=== PATIENT | female | born 1950 | race Caucasian/White ===

== ENCOUNTER 2017-02-24 08:13 | Emergency (ER) | payer OTHER ==
[2017-02-24] MEDS ORDERED: Ondansetron 4 MG/2 ML SDV IVPUSH ONE (08:29)
[2017-02-24] MEDS ORDERED: Sodium Chloride 0.9% 2.5 ML Syringe FLUSH PRN (08:29)
[2017-02-24] MEDS ORDERED: Ketorolac 30 MG/ML SDV IVPUSH ONE (08:29)
[2017-02-24] MEDS ORDERED: Sodium Chloride 0.9% 1,000 ML IV ONE (08:29)
[2017-02-24] MEDS ORDERED: Sodium Chloride 0.9% 10 ML Syringe FLUSH PRN (08:29)
--- NOTE | 2017-02-24 08:30 | EDM.PDOC ---
ED HPI GENERAL MEDICAL PROBLEM - General Chief Complaint: Abdominal Pain Stated Complaint: PAIN ON THE SIDE Time Seen by Provider: 02/24/17 08:24 - History of Present Illness INITIAL COMMENTS - FREE TEXT/NARRATIVE: HISTORY AND PHYSICAL: History of present illness: The patient is a 66-year-old female who follows in our clinic for her regular checkups and has no stated medical problems or surgical history and presents with complaints of a week and a half of left sided abdominal pain. Patient was traveling in [place] when it started it was gradual in onset and she has a long- standing history of issues with her bowels, constipation issues. She says it was crampy and dull and intermittently sharp and does not radiate to the flank or to the lower abdomen. It is mostly localized in the left upper abdominal area. It is not associated with fever chills nausea or vomiting but she has had anorexia and has not had much of an appetite. She is able to eat and drink but just doesn't have much of an appetite. She now says that over the last few days all foods seem to make the pain worse. She has no history of food intolerance. She did have a screening colonoscopy years ago which was normal. She has had bowel movements over the last few days but they are very small and hard in character and there is no black or bloody stools. The patient currently describes the pain as a sharper pain but intermittently will be more dull and it is localized in that left upper abdominal area. She has no history of gallbladder trouble or pancreas trouble and does drink alcohol but has not had an excessive amount and has had no new medications. She hasn't had no hematuria dysuria frequency or urgency. Review of systems: As per history of present illness and below otherwise all systems reviewed and negative. Past medical history: As per history of present illness and as reviewed below otherwise noncontributory. Surgical history: As per history of present illness and as reviewed below otherwise noncontributory. Social history: No reported history of drug or alcohol abuse. Family history: As per history of present illness and as reviewed below otherwise noncontributory. Physical exam: General: Well-developed well-nourished female who is nontoxic and able to move easily in the ED without distress. Vital signs were noted by me HEENT: Atraumatic, normocephalic, pupils reactive, negative for conjunctival pallor or scleral icterus, mucous membranes tacky, throat clear, neck supple, nontender, trachea midline. Lungs: Clear to auscultation, breath sounds equal bilaterally, chest nontender. Heart: S1S2, regular, negative for clicks, rubs, or JVD. Abdomen: Soft, nondistended, minimally tender to deep palpation in the left upper abdominal area without rebound or guarding. Bowel sounds are hypoactive. Negative for masses or hepatosplenomegaly. Negative for costovertebral tenderness. Pelvis: Stable nontender. Genitourinary: Deferred. Rectal: Deferred. Extremities: Atraumatic, negative for cords or calf pain. Neurovascular unremarkable. Neuro: Awake, alert, oriented. Cranial nerves II through XII unremarkable. Cerebellum unremarkable. Motor and sensory unremarkable throughout. Exam nonfocal. Diagnostics: CBC CMP amylase lipase UA urine culture indicated CT scan of the abdomen and pelvis Therapeutics: IV fluids Toradol Zofran I discussed with the patient at length her testing results and care plan for home which would include Bentyl as needed as well as increasing fiber in her diet MiraLAX daily for a short period of time and a probiotic. I advised the patient to contact our clinic for followup in the next few days and reasons to return to the ER. Impression: Left abdominal pain, history of constipation stable Definitive disposition and diagnosis as appropriate pending reevaluation and review of above. abdomen Pain Score (Numeric/FACES): 8 - Related Data Allergies Allergy/AdvReac Type Severity Reaction Status Date / Time levofloxacin [From Levaquin] Allergy Other Verified 02/24/17 08:29 sulfamethoxazole Allergy Cannot Verified 02/24/17 08:29 [From Bactrim] Remember trimethoprim [From Bactrim] Allergy Cannot Verified 02/24/17 08:29 Remember venlafaxine HCl Allergy Other Verified 02/24/17 08:29 [From Effexor] Home Meds: Home Meds PARoxetine HCl [Paroxetine HCl] 10 mg PO DAILY 02/24/17 [History] Zolpidem [Ambien] 5 mg PO DAILY 02/24/17 [History] ED ROS GENERAL - Review of Systems Review Of Systems: ROS reveals no pertinent complaints other than HPI. ED EXAM, GENERAL - Physical Exam Exam: See Below (See dictation) Course - Vital Signs Last Recorded V/S: Last Vital Signs Temp 36.1 C 02/24/17 08:20 Pulse 89 02/24/17 10:21 Resp 18 02/24/17 10:21 BP 118/66 02/24/17 10:21 Pulse Ox 96 02/24/17 10:21 - Orders/Labs/Meds Orders: Active Orders 24 hr Category Date Time Status Sodium Chloride 0.9% [Saline Flush] Med 02/24/17 08:29 Active 10 ml FLUSH ASDIRECTED PRN Sodium Chloride 0.9% [Saline Flush] Med 02/24/17 08:29 Active 2.5 ml FLUSH ASDIRECTED PRN Saline Lock Insert [OM.PC] Stat Oth 02/24/17 08:29 Ordered Medication Orders Sodium Chloride (Saline Flush) 10 ml FLUSH ASDIRECTED PRN PRN Reason: Keep Vein Open Last Admin: 02/24/17 08:47 Dose: 10 ml Sodium Chloride (Saline Flush) 2.5 ml FLUSH ASDIRECTED PRN PRN Reason: Keep Vein Open Last Admin: 02/24/17 08:47 Dose: 2.5 ml Labs: Laboratory Tests 02/24/17 02/24/17 02/24/17 Range/Units 08:37 08:37 09:30 WBC 5.26 (4.0-11.0) K/uL RBC 4.28 L (4.30-5.90) M/uL Hgb 13.5 (12.0-16.0) g/dL Hct 40.3 (36.0-46.0) % MCV 94.2 (80.0-98.0) fL MCH 31.5 (27.0-32.0) pg MCHC 33.5 (31.0-37.0) g/dL RDW Std Deviation 46.0 (28.0-62.0) fl RDW Coeff of Charmaine 13 (11.0-15.0) % Plt Count 166 (150-400) K/uL MPV 10.20 (7.40-12.00) fL Neut % (Auto) 58.9 (48.0-80.0) % Lymph % (Auto) 31.6 (16.0-40.0) % [place] % (Auto) 7.8 (0.0-15.0) % Eos % (Auto) 1.3 (0.0-7.0) % Baso % (Auto) 0.4 (0.0-1.5) % Neut # (Auto) 3.1 (1.4-5.7) K/uL Lymph # (Auto) 1.7 (0.6-2.4) K/uL [place] # (Auto) 0.4 (0.0-0.8) K/uL Eos # (Auto) 0.1 (0.0-0.7) K/uL Baso # (Auto) 0.0 (0.0-0.1) K/uL Nucleated RBC % 0.0 /100WBC Nucleated RBCs # 0 K/uL Sodium 140 (136-146) mmol/L Potassium 3.8 (3.5-5.1) mmol/L Chloride 111 H (98-110) mmol/L Carbon Dioxide 19 L (21-31) mmol/L BUN 14 (6.0-23.0) mg/dL Creatinine 0.9 (0.6-1.5) mg/dL Est Cr Clr Drug Dosing 59.12 mL/min Estimated GFR (MDRD) > 60.0 ml/min Glucose 116 H (60-110) mg/dL Calcium 9.6 (8.8-10.8) mg/dL Total Bilirubin 0.6 (0.1-1.5) mg/dL AST 19 (5-40) IU/L ALT 10 (8-54) IU/L Alkaline Phosphatase 58 (40-150) Total Protein 7.1 (6.0-8.0) g/dL Albumin 4.1 (3.4-4.8) g/dL Globulin 3.0 (2.0-3.5) g/dL Albumin/Globulin Ratio 1.4 (1.3-2.8) Amylase 45 (10-90) U/L Lipase 14 (7-80) U/L Urine Color YELLOW Urine Appearance CLEAR Urine pH 5.0 (5.0-8.0) Ur Specific [place] <= 1.005 (1.001-1.035) Urine Protein NEGATIVE (NEGATIVE) mg/dL Urine Glucose (UA) NEGATIVE (NEGATIVE) mg/dL Urine Ketones NEGATIVE (NEGATIVE) mg/dL Urine Occult Blood NEGATIVE (NEGATIVE) Urine Nitrite NEGATIVE (NEGATIVE) Urine Bilirubin NEGATIVE (NEGATIVE) Urine Urobilinogen 0.2 (<2.0) EU/dL Ur Leukocyte Esterase NEGATIVE (NEGATIVE) Urine RBC 0-2 (0-2/HPF) Urine WBC 0-2 (0-5/HPF) Ur Epithelial Cells FEW (NONE-FEW) Urine Bacteria RARE (NEGATIVE) Meds: Medications Generic Name Dose Route Start Last Admin Trade Name Freq PRN Reason Stop Dose Admin Sodium Chloride 10 ml 02/24/17 08:29 02/24/17 08:47 Saline Flush FLUSH 10 ml ASDIRECTED PRN Administration Keep Vein Open Sodium Chloride 2.5 ml 02/24/17 08:29 02/24/17 08:47 Saline Flush FLUSH 2.5 ml ASDIRECTED PRN Administration Keep Vein Open Discontinued Medications Generic Name Dose Route Start Last Admin Trade Name Freq PRN Reason Stop Dose Admin Sodium Chloride 1,000 mls @ 999 mls/hr 02/24/17 08:29 02/24/17 08:45 Normal Saline IV 02/24/17 09:29 999 mls/hr .Bolus ONE Administration Iopamidol 100 ml 02/24/17 09:19 02/24/17 10:53 Isovue Multipack-370 (76%) IVPUSH 02/24/17 09:20 100 ml ONETIME STA Administration Ketorolac Tromethamine 30 mg 02/24/17 08:29 02/24/17 08:44 Toradol IVPUSH 02/24/17 08:30 30 mg ONETIME ONE Administration Ondansetron HCl 4 mg 02/24/17 08:29 02/24/17 08:44 Zofran IVPUSH 02/24/17 08:30 4 mg ONETIME ONE Administration Departure - Departure Time of Disposition: 11:34 Disposition: Home, Self-Care 01 Condition: good Clinical Impression: Abdominal pain Qualifiers: Abdominal location: left upper quadrant Qualified Code(s): R10.12 - Left upper quadrant pain Forms: ED Department Discharge Additional Instructions: The following information is given to patients seen in the emergency department who are being discharged to home. This information is to outline your options for follow-up care. We provide all patients seen in our emergency department with a follow-up referral. The need for follow-up, as well as the timing and circumstances, are variable depending upon the specifics of your emergency department visit. If you don't have a primary care physician on staff, we will provide you with a referral. We always advise you to contact your personal physician following an emergency department visit to inform them of the circumstance of the visit and for follow-up with them and/or the need for any referrals to a consulting specialist. The emergency department will also refer you to a specialist when appropriate. This referral assures that you have the opportunity for followup care with a specialist. All of these measure are taken in an effort to provide you with optimal care, which includes your followup. Under all circumstances we always encourage you to contact your private physician who remains a resource for coordinating your care. When calling for followup care, please make the office aware that this follow-up is from your recent emergency room visit. If for any reason you are refused follow-up, please contact the [facility] emergency department at and ask to speak to the emergency department charge nurse. [facility] Primary care- Internal [place] [address] Please increase fiber in her diet and push hydration as we discussed and use [id number] MiraLAX twice a day for the next 2-3 days and then once a day for the next 7 days. Please also purchase a probiotic as we discussed. Use Bentyl prescribed to you as needed and directed and please call the clinic and schedule followup appointment. Return to ER as needed and as discussed - My Orders Last 24 Hours: My Active Orders 02/24/17 08:29 Sodium Chloride 0.9% [Saline Flush] 10 ml FLUSH ASDIRECTED PRN Sodium Chloride 0.9% [Saline Flush] 2.5 ml FLUSH ASDIRECTED PRN Saline Lock Insert [OM.PC] Stat - Assessment/Plan Last 24 Hours: My Active Orders 02/24/17 08:29 Sodium Chloride 0.9% [Saline Flush] 10 ml FLUSH ASDIRECTED PRN Sodium Chloride 0.9% [Saline Flush] 2.5 ml FLUSH ASDIRECTED PRN Saline Lock Insert [OM.PC] Stat
[2017-02-24 09:14] LABS: CHLORIDE,CL 111 mmol/L (98-110); SODIUM,NA 140 mmol/L (136-146)
[2017-02-24] MEDS ORDERED: Iopamidol 755 MG/ML 500 ML Multipack Bottle IVPUSH STA (09:19)
--- NOTE | 2017-02-24 11:14 | CT ---
CT of the abdomen and pelvis with contrast. HISTORY: Left-sided pain TECHNIQUE: Axial CT images were obtained of the abdomen and pelvis following administration of 100 m L of Isovue-370 without complication. Coronal and sagittal reconstructions obtained. FINDINGS: The lung bases are clear, no pleural effusion. Tiny hypodensities are noted within the liver, too sm all to fully characterize. The spleen, adrenal glands, and pancreas appear normal. The gallbladder i s unremarkable. There is a tiny fat-containing umbilical hernia. The kidneys enhance and function symmetrically without evidence of obstructive uropathy. The large and small bowel are normal in caliber without evidence of obstruction. No pericolonic infl ammation or stranding. The appendix appears normal. The urinary bladder is normal. No bulky pelvic l ymphadenopathy or free pelvic fluid. The uterus and ovaries appear grossly unremarkable. No suspicious osseous abnormalities. IMPRESSION: 1. No acute findings demonstrated within the abdomen or pelvis.
[2017-02-24 11:51] VITALS: BP 113/63
== END 2017-02-24 11:49 | disposition home or self-care (01) ==
LOC: MW.ED 08:13
DX: R10.12 Left upper quadrant pain (principal); Z88.2 Allergy status to sulfonamides; Z88.8 Allergy status to other drugs, medicaments and biological substances; Z79.899 Other long term (current) drug therapy
CPT/HCPCS: 74177; 80053; 81001; 82150; 83690; 85025; 96361; 96374; 96375; 99284; J1885; J2405; J7040; Q9967

== ENCOUNTER 2018-04-10 10:15 | Day surgery (SDC) | payer OTHER ==
[~2018-04-10 10:15] MED LIST: Ciprofloxacin/Dexamethasone 0.3-0.1% Otic Susp 7.5 ML Bottle ONE; EPINEPHrine 1 MG/ML SDV ONE
--- NOTE | 2018-04-10 11:04 | PCM.PREANE ---
Preanesthetic Assessment - Anesthesia/Transfusion/Family Hx Anesthesia History: Prior Anesthesia Without Reaction Family History of Anesthesia Reaction: No Transfusion History: Prior Transfusion Without Reaction - Review of Systems General: No Symptoms Pulmonary: No Symptoms Cardiovascular: No Symptoms Gastrointestinal: No Symptoms Neurological: No Symptoms Other: Reports: None - Physical Assessment Height: 1.65 m Weight: 81.647 kg ASA Class: 2 Mental Status: Alert & Oriented x3 Airway Class: Mallampati = 2 Dentition: Reports: Normal Dentition Thyro-Mental Finger Breadths: 2 Mouth Opening Finger Breadths: 3 ROM/Head Extension: Full Lungs: Clear to Auscultation, Normal Respiratory Effort Cardiovascular: Regular Rate, Regular Rhythm - Allergies Allergies/Adverse Reactions: Allergies Allergy/AdvReac Type Severity Reaction Status Date / Time levofloxacin [From Levaquin] Allergy Itching Verified 04/09/18 14:17 sulfamethoxazole Allergy Hives Verified 04/09/18 14:17 [From Bactrim] trimethoprim [From Bactrim] Allergy Hives Verified 04/09/18 14:17 venlafaxine HCl Allergy Itching Verified 04/09/18 14:17 [From Effexor] - Blood Blood Available: No - Anesthesia Plan Pre-Op Medication Ordered: None - Acknowledgements Anesthesia Type Planned: General Anesthesia Pt an Appropriate Candidate for the Planned Anesthesia: Yes Alternatives and Risks of Anesthesia Discussed w Pt/Guardian: Yes Pt/Guardian Understands and Agrees with Anesthesia Plan: Yes PreAnesthesia Questionnaire HEENT History: Reports: Allergic Rhinitis, Other (See Below) Other HEENT History: wears glasses Cardiovascular History: Reports: Other (See Below) (borderline cholesterol levels per patient) Gastrointestinal History: Reports: None, Other (See Below) Other Gastrointestinal History: yellow jaundice as a child Musculoskeletal History: Reports: Arthritis Psychiatric History: Reports: Anxiety, Depression Endocrine/Metabolic History: Reports: Obesity/BMI 30+ Hematologic History: Reports: Blood Transfusion(s) - Past Surgical History Head Surgeries/Procedures: Reports: None HEENT Surgical History: Reports: Naso-Sinus Surgery GI Surgical History: Reports: Colonoscopy ( 4years ago) Musculoskeletal Surgical History: Reports: Other (See Below) Other Musculoskeletal Surgeries/Procedures:: coccygectomy - SUBSTANCE USE Smoking Status *Q: Never Smoker Recreational Drug Use History: No - HOME MEDS Home Medications: Home Meds PARoxetine HCl [Paroxetine HCl] 20 mg PO DAILY 02/24/17 [History] Calcium Carbonate [Calcium] 500 mg PO DAILY 04/09/18 [History] Flaxseed Oil [Flax Oil] 1,000 mg PO DAILY 04/09/18 [History] Fluticasone Propionate [Flonase Allergy Relief] 11 spray NASBOTH DAILY 04/09/18 [History] Montelukast Sodium 10 mg PO DAILY 04/09/18 [History] Multivitamin [Multivitamins] 1 tab PO DAILY 04/09/18 [History] Ralls-3/DHA/Epa/Fish Oil [Ralls-3 EC Softgel] 340 mg PO DAILY 04/09/18 [History] Zolpidem Tartrate 0.5 - 1 tab PO BEDTIME PRN 04/09/18 [History] traZODone HCl [Trazodone HCl] 0.5 tab PO BEDTIME PRN 04/09/18 [History] - CURRENT (IN HOUSE) MEDS Current Meds: Current Medications Discontinued Medications Ciprofloxacin/Dexamethasone (Ciprodex Otic Susp) Confirm Administered Dose 7.5 ml .ROUTE .STK-MED ONE Stop: 04/10/18 07:39 Epinephrine HCl (Adrenalin) Confirm Administered Dose 1 mg .ROUTE .STK-MED ONE Stop: 04/10/18 07:34
[2018-04-10] MEDS ORDERED: fentaNYL 100 MCG/2 ML SDV ONE (11:13)
[2018-04-10] MEDS ORDERED: Midazolam 1 MG/ML 2 ML SDV ONE (11:51)
[2018-04-10] MEDS ORDERED: Lidocaine 2% 5 ML SDV ONE (11:51)
[2018-04-10] MEDS ORDERED: Propofol 200 MG/20 ML SDV ONE (11:51)
[2018-04-10] MEDS ORDERED: Lactated Ringers 1,000 ML IV SCH (12:30)
[2018-04-10] MEDS ORDERED: Oxymetazoline 0.05% Nasal Spray 15 ML Bottle ONE (12:46)
--- NOTE | 2018-04-10 13:08 | PCM.POSTAN ---
POST ANESTHESIA ASSESSMENT - MENTAL STATUS Mental Status: Alert, Oriented - RESPIRATORY Respiratory Status: Respiratory Rate WNL, Airway Patent, O2 Saturation Stable - CARDIOVASCULAR CV Status: Pulse Rate WNL, Blood Pressure Stable - GASTROINTESTINAL GI Status: No Symptoms - POST OP HYDRATION Hydration Status: Adequate & Stable
--- NOTE | 2018-04-10 13:32 | PCM.HPR ---
H & P Addendum review - H & P Addendum Review Date of Original H & P: 04/09/18 Date Reviewed: 04/10/18 Time Reviewed: 12:00 Patient was Examined: No Changes
--- NOTE | 2018-04-10 13:43 | PCM.OPNOTE ---
- General Post-Op/Procedure Note Condition: Good Free Text/Narrative:: Intake & Output 04/09/18 04/10/18 04/10/18 22:59 06:59 14:59 Intake Total 1000 Balance 1000 Pre operative Diagnosis: Right otitis media with effusion, eustachian tube dysfunction, hearing loss Post operative Diagnosis: Right otitis media with effusion, eustachian tube dysfunction, hearing loss Procedure: Right Myringotomy with Tympanostomy tube Surgeon: Wendi Martinez MD Anesthesia: General Anesthesiologist: Harshal ERAZO Date of procedure: 04/10/2018 Indications: Right otitis media with effusion, eustachian tube dysfunction, hearing loss Findings: Right middle ear serous effusion Operation Details: An informed consent for the procedure was obtained. A time out was performed and the patient was brought back to the operating room and laid supine on the operating room table. Anesthesia was administered with propofol ( see anesthesia note for details.) The right ear was addressed. Cerumen was cleared from the external auditory canal. An anterior inferior myringotomy incision was made in the pars tensa. Findings are as described above. Middle ear effusion was suctioned clear. Middle ear was irrigated with saline. An Bains tympanostomy tube was placed with an alligator forceps. Ciprodex ear drops were instilled. A cotton wool wall was placed in the leonarda. Specimens: None IV fluids: 750 ml Disposition: PACU for recovery Follow up: In 1 week
--- NOTE | 2018-04-10 14:05 | PCM48HPAN ---
Post Anesthesia Note - EVALUATION WITHIN 48HRS OF ANESTHETIC Vital Signs in Normal Range: Yes Patient Participated in Evaluation: Yes Respiratory Function Stable: Yes Airway Patent: Yes Cardiovascular Function Stable: Yes Hydration Status Stable: Yes Pain Control Satisfactory: Yes Nausea and Vomiting Control Satisfactory: Yes Mental Status Recovered: Yes Resp Rate: 17
[2018-04-10 14:17] VITALS: BP 107/60
== END 2018-04-10 14:10 | disposition home or self-care (01) ==
LOC: MW.SDS 10:15
PROVIDERS: ATTEND Otolaryngology
DX: H65.91 Unspecified nonsuppurative otitis media, right ear (principal); H91.91 Unspecified hearing loss, right ear; H69.90 Unspecified Eustachian tube disorder, unspecified ear; M19.90 Unspecified osteoarthritis, unspecified site; F32.9 Major depressive disorder, single episode, unspecified; E66.9 Obesity, unspecified; Z68.30 Body mass index [BMI] 30.0-30.9, adult; Z79.51 Long term (current) use of inhaled steroids; Z79.899 Other long term (current) drug therapy; Z88.1 Allergy status to other antibiotic agents; Z88.2 Allergy status to sulfonamides; Z88.8 Allergy status to other drugs, medicaments and biological substances
CPT/HCPCS: 69436; A9270; J2250; J3010; J7120; J0171; J2704

== ENCOUNTER 2019-03-25 02:20 | Emergency (ER) | payer MEDICARE, OTHER ==
[2019-03-25 02:30] VITALS: BP 141/66
[2019-03-25] MEDS ORDERED: Ketorolac 60 MG/2 ML SDV IM ONE (02:35)
--- NOTE | 2019-03-25 02:39 | EDM.PDOC ---
ED HPI GENERAL MEDICAL PROBLEM - General Chief Complaint: Genitourinary Problem Stated Complaint: BACK PAIN Time Seen by Provider: 03/25/19 02:22 - History of Present Illness INITIAL COMMENTS - FREE TEXT/NARRATIVE: HISTORY AND PHYSICAL: History of present illness: The patient is a 68-year-old female who follows in our clinic and in fact was seen there on March 18, 6 days ago, for medication refills and says that she has one week of lower bilateral back pain and it was just starting and she went to the clinic for her routine visit and did not mention it at that time. She says the pain seems to have worsened and it is associated with radiation to the front of her abdomen bilaterally as well as urinary frequency. She says she doesn't normally drink a lot of water but she has been trying to push fluids over the last few days and the pain as an aching deep pain and does not radiate to her but or her legs and is not associated with numbness tingling or weakness in her lower extremities. There is been no trauma to the area and she has no history of kidney stones or kidney problems. She has had UTIs in the past the last one being several years ago. She has no upper abdominal pain nausea vomiting or diarrhea no fevers or chills chest pain or shortness of breath. She has not had any blood in her urine. The patient says the back pain is not midline and is lower bilaterally and it is a burning sensation across her back. He did not take anything [id number] for this pain or the urinary frequency. She tells me that these symptoms feel like her prior UTI Please see below for some additional information Review of systems: As per history of present illness and below otherwise all systems reviewed and negative. Past medical history: As per history of present illness and as reviewed below otherwise noncontributory. Surgical history: As per history of present illness and as reviewed below otherwise noncontributory. Social history: No reported history of drug or alcohol abuse. Family history: As per history of present illness and as reviewed below otherwise noncontributory. Physical exam: General: Well-developed well-nourished female who is nontoxic and ambulated into the ED without distress or assistance. Vital signs are noted by me HEENT: Atraumatic, normocephalic, negative for conjunctival pallor or scleral icterus, mucous membranes moist, throat clear, neck supple, nontender, trachea midline. Lungs: Clear to auscultation, breath sounds equal bilaterally, chest nontender. Heart: S1S2, regular rate and rhythm no overt murmurs Abdomen: Soft, nondistended, nontender. Negative for masses or hepatosplenomegaly. Negative for costovertebral tenderness. Pelvis: Stable nontender. Genitourinary: Deferred. Rectal: Deferred. Extremities: Atraumatic, negative for cords or calf pain. Neurovascular unremarkable. Full range of motion without defects or deficits Neuro: Awake, alert, oriented. Cranial nerves II through XII unremarkable. Cerebellum unremarkable. Motor and sensory unremarkable throughout. Exam nonfocal. Back: There is no CVA tenderness no midline step-offs in his defects of the thoracic or lumbar spine and I cannot reproduce any pain on palpation of the lumbar spine in the region the patient indicates as the site of her pain. There is no pain with palpation of the buttocks. Negative straight leg rise bilaterally Diagnostics: UA with reflex culture Abdominal x-rays and lumbar spine x-rays Therapeutics: Toradol After I discussed the UA results with the patient she is not telling me that she has had some issues with constipation and esophagus but is not quite back to her regular state and she feels somewhat bloated. She still has not had fever chills nausea or vomiting and is eating and drinking normally. She also tells nursing that she has been working a lot in her garden and she tells me that she has been doing a lot of traveling in the car and all of this may have contributed to her lower back pain. I told her that we can do some basic x-rays of the abdomen and lumbar spine and then after that she would be needing to call her clinic provider for further evaluation of this problem and we will proceed to treat this as a musculoskeletal back pain Impression: Lower back pain with DJD, moderate constipation Definitive disposition and diagnosis as appropriate pending reevaluation and review of above. Bilateral Flank Pain Score (Numeric/FACES): 8 - Related Data Allergies Allergy/AdvReac Type Severity Reaction Status Date / Time levofloxacin [From Levaquin] Allergy Itching Verified 04/09/18 14:17 sulfamethoxazole Allergy Hives Verified 04/09/18 14:17 [From Bactrim] trimethoprim [From Bactrim] Allergy Hives Verified 04/09/18 14:17 venlafaxine HCl Allergy Itching Verified 04/09/18 14:17 [From Effexor] Home Meds: Home Meds PARoxetine HCl [Paroxetine HCl] 20 mg PO DAILY 02/24/17 [History] Calcium Carbonate [Calcium] 500 mg PO DAILY 04/09/18 [History] Flaxseed Oil [Flax Oil] 1,000 mg PO DAILY 04/09/18 [History] Multivitamin [Multivitamins] 1 tab PO DAILY 04/09/18 [History] Oktaha-3/DHA/Epa/Fish Oil [Oktaha-3 EC Softgel] 340 mg PO DAILY 04/09/18 [History] Zolpidem Tartrate 0.5 - 1 tab PO BEDTIME PRN 04/09/18 [History] traZODone HCl [Trazodone HCl] 0.5 tab PO BEDTIME PRN 04/09/18 [History] Past Medical History HEENT History: Reports: Allergic Rhinitis, Other (See Below) Other HEENT History: wears glasses Cardiovascular History: Reports: Other (See Below) (borderline cholesterol levels per patient) Gastrointestinal History: Reports: None, Other (See Below) Other Gastrointestinal History: yellow jaundice as a child Musculoskeletal History: Reports: Arthritis Psychiatric History: Reports: Anxiety, Depression Endocrine/Metabolic History: Reports: Obesity/BMI 30+ Hematologic History: Reports: Blood Transfusion(s) - Past Surgical History Head Surgeries/Procedures: Reports: None HEENT Surgical History: Reports: Naso-Sinus Surgery GI Surgical History: Reports: Colonoscopy ( 4years ago) Musculoskeletal Surgical History: Reports: Other (See Below) Other Musculoskeletal Surgeries/Procedures:: coccygectomy Social & Family History - Family History Family Medical History: Noncontributory - Caffeine Use Caffeine Use: Reports: Coffee Caffeine Use Comment: 2 cups a day ED ROS GENERAL - Review of Systems Review Of Systems: ROS reveals no pertinent complaints other than HPI. ED EXAM, GENERAL - Physical Exam Exam: See Below (See dictation) Course - Vital Signs Last Recorded V/S: Last Vital Signs Temp 35.9 C 03/25/19 02:26 Pulse 86 03/25/19 02:26 Resp BP 141/66 H 03/25/19 02:26 Pulse Ox 97 03/25/19 02:26 - Orders/Labs/Meds Labs: Laboratory Tests 03/25/19 Range/Units 02:25 Urine Color YELLOW Urine Appearance CLEAR Urine pH 5.5 (5.0-8.0) Ur Specific [place] <= 1.005 (1.001-1.035) Urine Protein NEGATIVE (NEGATIVE) mg/dL Urine Glucose (UA) NEGATIVE (NEGATIVE) mg/dL Urine Ketones NEGATIVE (NEGATIVE) mg/dL Urine Occult Blood NEGATIVE (NEGATIVE) Urine Nitrite NEGATIVE (NEGATIVE) Urine Bilirubin NEGATIVE (NEGATIVE) Urine Urobilinogen 0.2 (<2.0) EU/dL Ur Leukocyte Esterase NEGATIVE (NEGATIVE) Meds: Medications Discontinued Medications Generic Name Dose Route Start Last Admin Trade Name Freq PRN Reason Stop Dose Admin Ketorolac Tromethamine 60 mg 03/25/19 02:35 03/25/19 02:44 Toradol IM 03/25/19 02:36 60 mg ONETIME ONE Administration Departure - Departure Time of Disposition: 04:03 Disposition: Home, Self-Care 01 Condition: Good Clinical Impression: Lower back pain Qualifiers: Chronicity: unspecified Back pain laterality: bilateral Sciatica presence: without sciatica Qualified Code(s): M54.5 - Low back pain Constipation Qualifiers: Constipation type: unspecified constipation type Qualified Code(s): K59.00 - Constipation, unspecified - Discharge Information Instructions: Acute Back Pain, Adult Referrals: PCP,None [Primary Care Provider] - Forms: ED Department Discharge Additional Instructions: The following information is given to patients seen in the emergency department who are being discharged to home. This information is to outline your options for follow-up care. We provide all patients seen in our emergency department with a follow-up referral. The need for follow-up, as well as the timing and circumstances, are variable depending upon the specifics of your emergency department visit. If you don't have a primary care physician on staff, we will provide you with a referral. We always advise you to contact your personal physician following an emergency department visit to inform them of the circumstance of the visit and for follow-up with them and/or the need for any referrals to a consulting specialist. The emergency department will also refer you to a specialist when appropriate. This referral assures that you have the opportunity for followup care with a specialist. All of these measure are taken in an effort to provide you with optimal care, which includes your followup. Under all circumstances we always encourage you to contact your private physician who remains a resource for coordinating your care. When calling for followup care, please make the office aware that this follow-up is from your recent emergency room visit. If for any reason you are refused follow-up, please contact the [facility] emergency department at and ask to speak to the emergency department charge nurse. [facility] Primary care- Internal Medicine and Family [address] [address] Push hydration and rest. Please call and connect with her clinic provider for reevaluation and further care and return to ER as needed as discussed. Use over- the-counter medications such as Tylenol and take the prescribed medications, diclofenac and Flexeril, that you have been given from [facility] as you choose for pain management. These medications are anti-inflammatory and a muscle relaxer. Continue pushing hydration and eating a high-fiber diet and using over- the-counter stool softeners to help with getting her bowels moving better.
--- NOTE | 2019-03-25 03:57 | CR ---
Indication: Back pain and increased urination. Technique: Abdomen 2 view. Comparison: None. Findings: No dilated loops of large or small intestine with a moderate amount of stool within the colon. No abnormal calcifications. Mild degenerative disc disease lumbar spine. Impression: No evidence of ileus or obstruction. Moderate amount of stool within the colon. Dictated by Siddhartha Alvarado MD @ Mar 25 2019 3:55AM Signed by Dr. Siddhartha Alvarado @ Mar 25 2019 3:56AM
--- NOTE | 2019-03-25 03:59 | CR ---
INDICATION: Back pain TECHNIQUE: Lumbar spine 3 view COMPARISON: None FINDINGS: Bones: Minimal rightward curvature mid lumbar spine. No evidence of acute fracture. Joints: Anterior osteophytes at L1-2 with mild disc space narrowing at L3-4 and L4-5. Soft tissues: Unremarkable. IMPRESSION: Mild degenerative disc disease lumbar spine, greatest at the L1-2 level. Dictated by Siddhartha Alvarado MD @ Mar 25 2019 3:56AM Signed by Dr. Siddhartha Alvarado @ Mar 25 2019 3:57AM
== END 2019-03-25 04:10 | disposition home or self-care (01) ==
LOC: MW.ED 02:20
DX: M54.5 Low back pain (principal); M47.9 Spondylosis, unspecified; K59.00 Constipation, unspecified; Z88.1 Allergy status to other antibiotic agents; Z88.8 Allergy status to other drugs, medicaments and biological substances; Z79.899 Other long term (current) drug therapy
CPT/HCPCS: 72100; 74019; 81003; 96372; 99283; J1885